=== PATIENT | male | born 1940 | race Caucasian/White ===

== ENCOUNTER 2018-12-09 22:51 | Emergency (ER) | payer OTHER ==
[~2018-12-09] VITALS: Ht 175.3 cm; Wt 69.4 kg
[2018-12-09 23:07] VITALS: Ht 175.3 cm; Wt 69.4 kg
[2018-12-10 00:16] VITALS: BP 112/62
== END 2018-12-10 00:16 | disposition home or self-care (01) ==
LOC: ED 22:51
DX: S63.501A Unspecified sprain of right wrist, initial encounter (principal); S60.221A Contusion of right hand, initial encounter; I10 Essential (primary) hypertension; Z98.890 Other specified postprocedural states; V43.52XA Car driver injured in collision with other type car in traffic accident, initial encounter; Y93.I9 Activity, other involving external motion; Y92.488 Other paved roadways as the place of occurrence of the external cause; Y99.8 Other external cause status
CPT/HCPCS: A4570

== ENCOUNTER 2018-12-11 11:57 | Emergency (ER) | payer OTHER | END 2018-12-11 15:00 | disposition home or self-care (01) | LOC: ED 11:57 ==